=== PATIENT | female | born 1970 | race Caucasian/White ===

== ENCOUNTER 2017-10-05 09:35 | Emergency (ER) | payer MEDICAID ==
[2017-10-05 10:32] VITALS: BP 122/85; PULSE 76; RESP 18; TEMP 97.7; O2SAT 94
--- NOTE | 2017-10-05 10:56 | EDPHY ---
H & P Stated Complaint: 6 months bilat hand pain Time Seen by Provider: 10/05/17 09:51 HPI/ROS: CHIEF COMPLAINT: Bilateral hand pain HISTORY OF PRESENT ILLNESS: The patient presents to the ED with complaints of bilateral hand pain. The patient's symptoms have been present for the past several months. The patient saw her primary care provider who recommended the patient follow up with a hand surgeon. The patient has been using Aleve without improvement of her symptoms. The patient denies significant weakness. She has no complaints of neck pain. She denies fever. The patient denies any history of fall or trauma. The patient does have a history of a cholecystectomy. She has a history of hyperlipidemia. REVIEW OF SYSTEMS: A comprehensive 10 point review of systems is otherwise negative aside from elements mentioned in the history of present illness. Source: Patient Exam Limitations: No limitations - Personal History LMP (Females 10-55): Irregular Current Tetanus/Diphtheria Vaccine: Yes - Medical/Surgical History Hx Asthma: No Hx Chronic Respiratory Disease: No Hx Diabetes: No Hx Cardiac Disease: No Hx Renal Disease: No Hx Cirrhosis: No Hx Alcoholism: No Hx HIV/AIDS: No Hx Splenectomy or Spleen Trauma: No Other PMH: choly - Social History Smoking Status: Current every day smoker - Physical Exam Exam: General Appearance: Alert, no distress Eyes: Pupils equal and round no pallor or injection ENT, Mouth: Mucous membranes moist Respiratory: There are no retractions, lungs are clear to auscultation Cardiovascular: Regular rate and rhythm Gastrointestinal: Abdomen is soft and nontender, no masses, bowel sounds normal Neurological: Patient reports decreased sensation to light touch throughout the 2nd through 5th fingers. Patient is noted to have 5/5 strength throughout. Bilateral lower extremity strength noted, no clonus, normal reflexes bilateral upper extremities. Skin: Warm and dry, no rashes Musculoskeletal: Neck is supple nontender Extremities: symmetrical, full range of motion Constitutional: Initial Vital Signs Temperature (C) 36.7 C 10/05/17 09:39 Heart Rate 98 10/05/17 09:39 Respiratory Rate 16 10/05/17 09:39 Blood Pressure 132/93 H 10/05/17 09:39 O2 Sat (%) 96 10/05/17 09:39 O2 Delivery Mode Room Air Allergies/Adverse Reactions: codeine Allergy (Verified 10/05/17 09:38) Home Medications: Medication Instructions Recorded AMITRIPTYLINE HCL 10/05/17 VENLAFAXINE HCL 10/05/17 hydrOXYzine HCL 10/05/17 predniSONE [prednisone 20mg (RX)] 3 tab PO DAILY #15 tab 10/05/17 Medical Decision Making ED Course/Re-evaluation: The patient presents to the ED with bilateral hand pain for the past 6 months. There is not a classic distribution of a ulnar or median nerve pathology. Patient has brisk pulses. There is no evidence of circulatory compromise. The patient has no significant weakness on exam. The patient will be started on steroids to see if that improves her symptoms. I have referred her to our on- call hand surgeon for further evaluation of her symptoms. Departure - Departure Disposition: Home, Routine, Self-Care Clinical Impression: Bilateral hand pain Condition: Good Instructions: Arthralgia (ED) Additional Instructions: 1. Take steroids as directed for next 5 days. 2. Please follow up with the hand specialist you have been referred to for further evaluation. 3. Return to the ED for any weakness, worsening symptoms, fever or other concerns. Referrals: Willy Leonardo MD [Medical Doctor] - As per Instructions
== END 2017-10-05 10:31 | disposition home or self-care (01) ==
DX: M79.642 Pain in left hand (principal); M79.641 Pain in right hand; F17.200 Nicotine dependence, unspecified, uncomplicated

== ENCOUNTER 2017-11-28 16:18 | Emergency (ER) | payer MEDICAID ==
--- NOTE | 2017-11-28 17:05 | EDPHY ---
H & P Stated Complaint: r hand and wrist pain/seen in nov for same/can't find hand dr that takes me - Personal History LMP (Females 10-55): Over 28 Days Ago Current Tetanus/Diphtheria Vaccine: Yes - Medical/Surgical History Hx Asthma: No Hx Chronic Respiratory Disease: No Hx Diabetes: No Hx Cardiac Disease: No Hx Renal Disease: No Hx Cirrhosis: No Hx Alcoholism: No Hx HIV/AIDS: No Hx Splenectomy or Spleen Trauma: No Other PMH: Cholecystectomy - Social History Smoking Status: Current every day smoker HPI/ROS: Chief complaint: Bilateral wrist pain History of present illness: This is a 46-year-old female who presents to the emergency department for bilateral wrist pain. Patient reports she has been suffering from symptoms for the better part of this last year. Symptoms are at the point where it makes it difficult to perform activities of daily living. She has been seen by her primary care doctor as well as this emergency room. She has been referred to hand surgery. However she cannot follow-up with hand surgery as she has not found one that takes Medicaid. She has been treating with [id number] Aleve as well as using wrist splints at night. The symptoms have progressed. She denies associated signs or symptoms including no history of trauma, no fevers, no abnormal coolness the fingers, no paresthesias. Review of systems: A 10 point review of systems was obtained and other than described above was negative (Nomna Babcock) - Physical Exam Exam: General Appearance: Alert, nontoxic. Eyes: Pupils equal and round no injection. Respiratory: Chest is non tender, lungs are clear to auscultation. Cardiac: regular rate and rhythm Gastrointestinal: Abdomen is soft and non tender, no masses, bowel sounds normal. Musculoskeletal: Spine is nontender to palpation along its entire length. Patient has good range of motion and strength in the upper extremities bilaterally. The he is moving the wrist other digits well bilaterally. I am able to reproduce discomfort by having her forcefully extend or flex her wrists. Skin: No rashes or lesions. (Noman Babcock) Constitutional: Initial Vital Signs Temperature (C) 36.3 C 11/28/17 16:23 Heart Rate 80 11/28/17 16:23 Respiratory Rate 16 11/28/17 16:23 Blood Pressure 134/81 H 11/28/17 16:23 O2 Sat (%) 95 11/28/17 16:23 O2 Delivery Mode Room Air Allergies/Adverse Reactions: codeine Allergy (Verified 10/05/17 09:38) Home Medications: Medication Instructions Recorded VENLAFAXINE HCL 10/05/17 Naproxen Sodium 550 mg PO BID #20 tablet 11/28/17 SIMVASTATIN 11/28/17 Medical Decision Making - Diagnostics Imaging: I viewed and interpreted images myself - Diagnostics Imaging Results: Imaging Impressions Wrist X-Ray 11/28/17 17:00 Impression: No visible etiology for the patient's pain. Wrist X-Ray 11/28/17 17:00 Impression: No visible etiology for the patient's pain. ED Course/Re-evaluation: Patient seen under the supervision of my secondary supervising physician Dr. Rambo Lopez. Patient presents to the emergency department for chronic wrist pain. The hands are neurovascularly intact. She has good musculoskeletal control of them. X-rays are negative. Her primary concern is she has been unable to find a hand doctor that takes Medicaid. Case management has been involved. She is discharged home with a referral to a hand surgeon. Home care is discussed. Return precautions are given. Patient voiced understanding and agreement with plan. (Noman Babcock) Differential Diagnosis: Included but not limited to arthritis, carpal tunnel syndrome, contusion, sprain or strain, fracture (Noman Babcock) Other Provider: PHYSICIAN DOCUMENTATION: The patient was evaluated and managed by the Physician Log Loader. My co- signature indicates that I have reviewed this chart and I agree with the findings and plan of care as documented. I am the secondary supervising physician. (Sriram Lopez) Departure - Departure Disposition: Home, Routine, Self-Care Clinical Impression: Wrist pain, chronic Qualifiers: Laterality: unspecified laterality Qualified Code(s): M25.539 - Pain in unspecified wrist Condition: Good Instructions: Arthralgia (ED) Additional Instructions: You have a referral to Dr. Stephanie Ruiz (Hand specialist). Please call the office in the morning to schedule an appointment: Please take any ER records and/or instructions with you to your appointment Referrals: Farzaneh Packer MD [Primary Care Provider] - As per Instructions Stephanie Ruiz MD [Medical Doctor] - As per Instructions Prescriptions: Naproxen Sodium 550 mg PO BID #20 tablet
--- NOTE | 2017-11-28 17:32 | ASMTCMCOM ---
CM Note CM Note Notes: Referral made to Dr. Stephanie Ruiz per Dr. Lopez. ER report faxed to DR. Crockett' office along with patient demographic information. Hand X-rays pending at this time and I have explained that in my fax. Patient instructed to call Dr. Ruiz's office in AM to schedule appointment. Details added to patient discharge instructions Date Signed: 11/28/2017 05:31 PM Electronically Signed By:Zoe Herrmann RN
[2017-11-28 18:21] VITALS: BP 125/74; PULSE 74; RESP 18; TEMP 98.6; O2SAT 93
== END 2017-11-28 18:41 | disposition home or self-care (01) ==
DX: M25.531 Pain in right wrist (principal); M25.532 Pain in left wrist; G89.29 Other chronic pain; F17.200 Nicotine dependence, unspecified, uncomplicated

== ENCOUNTER 2017-12-11 22:35 | Emergency (ER) | payer MEDICAID ==
[2017-12-11 22:40] VITALS: TEMP 97.5
[2017-12-12] MEDS ORDERED: KETOROLAC 30 MG/1 ML SDV IM ONE (00:21)
[2017-12-12] MEDS ORDERED: LIDOCAINE 5% 1 EA PATCH TD ONE (00:24)
--- NOTE | 2017-12-12 00:29 | EDPHY ---
H & P Stated Complaint: right fank pain, cough Time Seen by Provider: 12/12/17 00:13 HPI/ROS: HPI The patient presents with right-sided flank pain which has been present for 3 days. A few weeks ago she had a similar pain, however improved on its own. The pain is sharp, constant, does not radiate, is worse when she is lying flat. She has tried heating pads and NSAIDs without any improvement in her symptoms. She denies any dysuria or hematuria. She has not had a rash. She denies any fever. She does not have any numbness or tingling of her legs. She denies any leg weakness. She denies any incontinence. She is also complaining of a dry cough which has been present for the last several weeks ever since she stop smoking.. REVIEW OF SYSTEMS Constitutional: No fever, no chills. Eyes: No discharge. ENT: No sore throat. Cardiovascular: No chest pain, no palpitations. Respiratory: No cough, no shortness of breath. Gastrointestinal: No abdominal pain, no vomiting. Genitourinary: No hematuria. Musculoskeletal: See HPI Skin: No rashes. Neurological: No headache. PMHx: History of carpal tunnel Soc Hx: Recently quit smoking PHYSICAL General Appearance: Alert, no distress Eyes: Pupils equal and round no pallor or injection ENT, Mouth: Mucous membranes moist Respiratory: There are no retractions, lungs are clear to auscultation Cardiovascular: Regular rate and rhythm Gastrointestinal: Abdomen is soft and non-tender, no masses, bowel sounds normal Back: There is right-sided paraspinal tenderness along the lumbar spine with no midline tenderness, there is mild right-sided CVAT Neurological: A&O, moves all extremities Skin: Warm and dry, no rashes Musculoskeletal: Neck is supple non tender Extremities: symmetrical, full range of motion Psychiatric: Patient is oriented X 3, there is no agitation Source: Patient Exam Limitations: No limitations - Personal History LMP (Females 10-55): Post Menopausal - Medical/Surgical History Hx Asthma: No Hx Chronic Respiratory Disease: No Hx Diabetes: No Hx Cardiac Disease: No Hx Renal Disease: No Hx Cirrhosis: No Hx Alcoholism: No Hx HIV/AIDS: No Hx Splenectomy or Spleen Trauma: No Other PMH: Cholecystectomy, depression, hyperlipidemia - Social History Smoking Status: Former smoker Constitutional: Initial Vital Signs Temperature (C) 36.4 C 12/11/17 22:38 Heart Rate 94 12/11/17 22:38 Respiratory Rate 20 12/11/17 22:38 Blood Pressure 141/87 H 12/11/17 22:38 O2 Sat (%) 96 12/11/17 22:38 O2 Delivery Mode Room Air Allergies/Adverse Reactions: codeine Allergy (Verified 12/11/17 22:37) Home Medications: Medication Instructions Recorded VENLAFAXINE HCL 10/05/17 Naproxen Sodium 550 mg PO BID #20 tablet 11/28/17 SIMVASTATIN 11/28/17 Medical Decision Making - Diagnostics Imaging Results: Chest x-ray two view shows no cardiomegaly, no infiltrate, no effusion, interpreted by me, radiology interpretation is pending. Differential Diagnosis: 46-year-old female presents with right-sided flank pain for the last 3 days with no associated features. Differential diagnosis includes musculoskeletal pain, nephrolithiasis, ureterolithiasis. In the emergency department, chest x-ray was performed and was normal showing no pneumonia. UA was also normal making pyelonephritis or ureterolithiasis unlikely. I feel the patient is likely suffering from muscular pain. I have discussed this with her. She received Toradol and lidocaine patch with improvement in her symptoms. I have explained that she should take ibuprofen and Tylenol around the clock until she is feeling better. She can follow up with her primary care doctor if she is still having pain in 1-2 weeks. - Data Points Laboratory Results: 12/12/17 00:00 Urine Color PALE YELLOW Urine Appearance CLEAR Urine pH 6.0 (5.0-7.5) Ur Specific [place] 1.003 (1.002-1.030) Urine Protein NEGATIVE (NEGATIVE) Urine Ketones NEGATIVE (NEGATIVE) Urine Blood NEGATIVE (NEGATIVE) Urine Nitrate NEGATIVE (NEGATIVE) Urine Bilirubin NEGATIVE (NEGATIVE) Urine Urobilinogen NEGATIVE EU EU (0.2-1.0) Ur Leukocyte Esterase NEGATIVE (NEGATIVE) Urine Glucose NEGATIVE (NEGATIVE) Medications Given: Discontinued Medications Ketorolac Tromethamine (Toradol) 30 mg IM EDNOW ONE Stop: 12/12/17 00:22 Last Admin: 12/12/17 00:30 Dose: 30 mg Lidocaine (Lidoderm 5%) 1 ea TD DAILY ORNEY Stop: 06/10/18 08:59 Last Admin: 12/12/17 00:31 Dose: 1 ea Departure - Departure Disposition: Home, Routine, Self-Care Clinical Impression: Lower back pain Qualifiers: Chronicity: acute Back pain laterality: right Sciatica presence: without sciatica Qualified Code(s): M54.5 - Low back pain Condition: Good Instructions: Low Back Strain (ED), Lower Back Exercises (ED) Additional Instructions: You should take ibuprofen 400 mg and acetaminophen 650 mg every 6 hr as needed for pain. Please follow-up with your primary care doctor in 1-2 weeks unless your better. Referrals: Farzaneh Packer MD [Primary Care Provider] - As per Instructions
[2017-12-12 01:42] VITALS: BP 97/67; PULSE 69; RESP 16; O2SAT 97
[2017-12-12] MEDS ORDERED: LIDOCAINE 5% 1 EA PATCH TD SCH (09:00)
[2017-12-12] MEDS ORDERED: PATCH REMOVAL 1 EA PATCH TD SCH (21:00)
== END 2017-12-12 01:58 | disposition home or self-care (01) ==
DX: M54.5 Low back pain (principal); Z90.49 Acquired absence of other specified parts of digestive tract; Z87.891 Personal history of nicotine dependence
CPT/HCPCS: J1885

== ENCOUNTER → 2017-12-17 | Outpatient (CLI) | payer MEDICAID | LOC: FIMAGING 09:53 | PROVIDERS: ATTEND Family Medicine | DX: M54.9 Dorsalgia, unspecified (principal); M62.838 Other muscle spasm; R10.9 Unspecified abdominal pain ==

== ENCOUNTER 2018-01-06 10:50 | Emergency (ER) | payer MEDICAID ==
--- NOTE | 2018-01-06 11:00 | CPEKG ---
Heart Rate: 57 RR Interval: 1053 P-R Interval: 176 QRSD Interval: 94 QT Interval: 420 QTC Interval: 409 P [place]: 49 QRS [place]: 23 T Wave [place]: 23 EKG Severity - NORMAL ECG - EKG Impression: SINUS RHYTHM Electronically Signed By: Dimple Rodriguez 06-Jan-2018 17:19:44
--- NOTE | 2018-01-06 11:09 | EDPHY ---
General - History Smoking Status: Former smoker Time Seen by Provider: 01/06/18 11:01 Narrative: CHIEF COMPLAINT: Chest pain HISTORY OF PRESENT ILLNESS: Patient arrives by EMS with complaints of left-sided chest pain. The chest pain started this morning 8:39 a.m.. This is an acute on chronic pain that she has been experiencing for the past year. It is described as a sharp, constant pain. It does wax and wane but never goes away. It radiates to the left shoulder and arm with some tingling of the arm. No neck pain. No headache. She was reportedly diaphoretic with some lightheadedness and dizziness. It is currently 10/10 pain. No worse with exertion or going down the stairs in her apartment. No trauma or injury. No history of PE or other venous thrombolic event. She recently quit smoking 1 month ago and has no previous diagnosis for this. Stress test in 2011. No other associated complaints or modifying factors. REVIEW OF SYSTEMS: Ten systems reviewed and are negative unless otherwise noted in the HPI PCP: Dr. Packer SPECIALISTS: None PAST MEDICAL HISTORY: Carpal tunnel syndrome, fibromyalgia, hypertension PAST SURGICAL HISTORY: Cholecystectomy SOCIAL HISTORY: Quit smoking 1 month ago with 1 inav-toe-hme smoking. No drug or alcohol use. Does not work FAMILY HISTORY: Noncontributory EXAMINATION General Appearance: Alert, no distress, tearful but consolable Head: normocephalic, atraumatic Eyes: Pupils equal and round, no conjunctival pallor or injection ENT, Mouth: Mucous membranes moist Neck: Normal inspection, supple, non-tender Respiratory: Lungs are clear to auscultation. No wheezing rhonchi or crackles Cardiovascular: Regular rate and rhythm. No murmur. Painful palpation to the left anterior chest. Gastrointestinal: Abdomen is soft and nontender Back: non-tender, no bony abnormalities Neurological: A&O, nonfocal, normal gait Skin: Warm and dry, no rash. No petechiae or purpura Extremities: Nontender, no pedal edema Psychiatric: Mood and affect normal DIFFERENTIAL DIAGNOSES: Including but not limited to ACS, PE, pneumonia, pleurisy, pericarditis, musculoskeletal pain MDM: 11:10 a.m. Left-sided chest pain that is mostly reproducible with palpation. There is some radicular-type pain. This is nonexertional. Vital signs are within normal limits. Low clinical suspicion for ACS or PE, but I have discussed with Dr. Rodriguez and we have ordered a D-dimer. Her cardiac labs are already pending. Chest x-ray ordered. No acute distress. 11:45 a.m. Laboratory studies are unremarkable. This includes a negative troponin. Negative HCG. No leukocytosis. D-dimer is pending. I have ordered Toradol for pain 12:20 p.m. D-dimer is negative. I have re-evaluated the patient and her pain has not improved with the IV Toradol. I have ordered 2 Percocet 5 mg pills. I discussed with Dr. Rodriguez. 1:30 p.m. Patient re-evaluated. I do feel that there is possibility of anxiety component to this. This has been addressed with the RN as well. Patient will be evaluated by Dr. Rodriguez as well. 2:30 p.m. Patient evaluated by Dr. Rodriguez. Repeat troponin is pending. 3:10 p.m. The 2nd troponin, drawn at 3:00 a.m. From time arrival, is also negative. I have re-evaluated the patient. Her pain is improving. She has minimal complaints of pain at this time. This is a reproducible pain. I do not feel this is cardiac in etiology. We had a very lengthy discussion regarding her underlying pain, chronic pain, anxiety component. I recommend that she follow up with primary care physician to discuss psychiatric referral for the possibility of resuming her Xanax. We discussed [id number] anti- inflammatories. At this time she is stable for discharge home. [place] HEART score: 2 (age and 1 risk factor) SUPERVISION: Patient was independently examined, but I discussed the case with my secondary supervising physician Dr. Rodriguez ([facility]) I evaluated and participated in the management of the patient. I also evaluated the patient independently. My co-signature indicates that I have reviewed this chart and I agree with the findings and plan of care as documented. My personal H&P findings include: This is a 47-year-old female who tells me she has had left-sided chest pain for 5 years. She describes pain radiating from the left para sternal region to her left shoulder. She tells me that she has been previously diagnosed as having possible fibromyalgia. Today she presents emergency department reporting that for the last 4 hr she has had left- sided chest pain radiating into her left shoulder and then onto her arm. Pain is described as sharp. It is worse with deep inspiration. Patient has no cardiac risk factors that we can identify other than former smoker. She is slightly overweight. No history of diabetes or hypertension. No history of hypercholesterolemia. Patient is adopted and does not know her family history. Patient's lungs are clear auscultation. Heart is regular rate and rhythm. EKG has no ischemic changes. Initial troponin is negative. Patient's heart score is 2. Patient is agreeable to have a 2nd troponin ordered 3 hr following the 1st. This was also negative. Patient will be discharged to follow up at [facility]. (Dimple Rodriguez) - Diagnostics Imaging Results: Imaging Impressions Chest X-Ray 01/06/18 11:21 Impression: Normal chest. - Objective Vital Signs: Initial Vital Signs Temperature (C) 36.3 C 01/06/18 10:56 Heart Rate 65 01/06/18 10:56 Respiratory Rate 16 01/06/18 10:56 Blood Pressure 155/83 H 01/06/18 10:56 O2 Sat (%) 99 01/06/18 10:56 O2 Delivery Mode Room Air Allergies/Adverse Reactions: codeine Allergy (Verified 12/11/17 22:37) Home Medications: Medication Instructions Recorded VENLAFAXINE HCL 10/05/17 SIMVASTATIN 11/28/17 traZODone 01/06/18 Laboratory Results: Laboratory Results 01/06/18 11:01 01/06/18 11:01 01/06/18 01/06/18 01/06/18 14:05 11:01 11:01 WBC RBC Hgb Hct MCV MCH MCHC RDW Plt Count MPV Neut % (Auto) Lymph % (Auto) [place] % (Auto) Eos % (Auto) Baso % (Auto) Nucleat RBC Rel Count Absolute Neuts (auto) Absolute Lymphs (auto) Absolute Monos (auto) Absolute Eos (auto) Absolute Basos (auto) Absolute Nucleated RBC Immature Gran % Immature Gran # PT INR APTT D-Dimer Sodium 141 mEq/L mEq/L (135-145) Potassium 4.4 mEq/L mEq/L (3.5-5.2) Chloride 101 mEq/L mEq/L (97-110) Carbon Dioxide 26 mEq/l mEq/l (22-31) Anion Gap 14 mEq/L mEq/L (8-16) BUN 12 mg/dL mg/dL (7-23) Creatinine 0.8 mg/dL mg/dL (0.6-1.0) Estimated GFR > 60 Glucose 117 mg/dL H mg/dL (70-100) Calcium 9.5 mg/dL mg/dL (8.5-10.4) Troponin I < 0.012 ng/mL ng/mL < 0.012 ng/mL ng/mL (0.000-0.034) (0.000-0.034) NT-Pro-B Natriuret Pep 106 pg/mL pg/mL (0-125) Lipase 60 IU/L IU/L (23-300) Beta HCG, Qual NEGATIVE 01/06/18 01/06/18 11:01 11:01 WBC 9.25 10^3/uL 10^3/uL (3.80-9.50) RBC 5.16 10^6/uL 10^6/uL (4.18-5.33) Hgb 14.2 g/dL g/dL (12.6-16.3) Hct 44.4 % % (38.0-47.0) MCV 86.0 fL fL (81.5-99.8) MCH 27.5 pg L pg (27.9-34.1) MCHC 32.0 g/dL L g/dL (32.4-36.7) RDW 15.9 % H % (11.5-15.2) Plt Count 265 10^3/uL 10^3/uL (150-400) MPV 8.3 fL L fL (8.7-11.7) Neut % (Auto) 68.1 % % (39.3-74.2) Lymph % (Auto) 24.0 % % (15.0-45.0) [place] % (Auto) 5.9 % % (4.5-13.0) Eos % (Auto) 1.3 % % (0.6-7.6) Baso % (Auto) 0.3 % % (0.3-1.7) Nucleat RBC Rel Count 0.0 % % (0.0-0.2) Absolute Neuts (auto) 6.29 10^3/uL 10^3/uL (1.70-6.50) Absolute Lymphs (auto) 2.22 10^3/uL 10^3/uL (1.00-3.00) Absolute Monos (auto) 0.55 10^3/uL 10^3/uL (0.30-0.80) Absolute Eos (auto) 0.12 10^3/uL 10^3/uL (0.03-0.40) Absolute Basos (auto) 0.03 10^3/uL 10^3/uL (0.02-0.10) Absolute Nucleated RBC 0.00 10^3/uL 10^3/uL (0-0.01) Immature Gran % 0.4 % % (0.0-1.1) Immature Gran # 0.04 10^3/uL 10^3/uL (0.00-0.10) PT 12.9 SEC SEC (12.0-15.0) INR 0.95 (0.83-1.16) APTT 29.1 SEC SEC (23.0-38.0) D-Dimer 0.30 ug/mLFEU ug/mLFEU (0.00-0.50) Sodium Potassium Chloride Carbon Dioxide Anion Gap BUN Creatinine Estimated GFR Glucose Calcium Troponin I NT-Pro-B Natriuret Pep Lipase Beta HCG, Qual Medications Given: Discontinued Medications Acetaminophen (Tylenol) 1,000 mg PO EDNOW ONE Stop: 01/06/18 14:20 Last Admin: 01/06/18 14:56 Dose: Not Given Ketorolac Tromethamine (Toradol) 30 mg IVP EDNOW ONE Stop: 01/06/18 11:56 Last Admin: 01/06/18 12:02 Dose: 30 mg Miscellaneous Medication (Icy Hot Lidocaine/Menthol 4%/1% Patch) 1 patch TD EDNOW ONE Stop: 01/06/18 14:20 Last Admin: 01/06/18 14:56 Dose: Not Given Oxycodone/Acetaminophen (Percocet 5/325) 2 tab PO EDNOW ONE Stop: 01/06/18 12:27 Last Admin: 01/06/18 12:48 Dose: 2 tab Departure - Departure Disposition: Home, Routine, Self-Care Clinical Impression: Chest wall pain Condition: Good Instructions: Chest Pain (ED), Anxiety (ED), Chest Wall Pain (ED), Anxiolysis in Adults (ED) Additional Instructions: 1. Recommend [id number] anti-inflammatories as discussed as needed 2. Follow up with primary care physician for further care and workup 3. ED precautions as discussed Referrals: Farzaneh Packer MD [Primary Care Provider] - As per Instructions
[2018-01-06 11:13] LABS: PLATELET COUNT 265 10^3/uL (150-400)
[2018-01-06 11:25] LABS: INR 0.95 (0.83-1.16); PROTIME(PATIENT) 12.9 SEC (12.0-15.0)
[2018-01-06] MEDS ORDERED: KETOROLAC 30 MG/1 ML SDV IVP ONE (11:55)
[2018-01-06 12:14] VITALS: RESP 18
[2018-01-06] MEDS ORDERED: OXYCODONE/APAP 5/325 TAB PO ONE (12:26)
[2018-01-06] MEDS ORDERED: LIDOCAINE 4%/MENTHOL 1% PATCH TD ONE (14:19)
[2018-01-06] MEDS ORDERED: ACETAMINOPHEN 500 MG TAB PO ONE (14:19)
[2018-01-06 15:24] VITALS: BP 125/87; PULSE 69; TEMP 98.6; O2SAT 96
== END 2018-01-06 15:23 | disposition home or self-care (01) ==
LOC: EDUNIT#
DX: R07.89 Other chest pain (principal); I10 Essential (primary) hypertension; Z87.891 Personal history of nicotine dependence
CPT/HCPCS: 96374; J1885

== ENCOUNTER 2018-01-25 16:42 | Emergency (ER) | payer MEDICAID | END 2018-01-25 17:11 | disposition left against medical advice (07) | DX: Z53.21 Procedure and treatment not carried out due to patient leaving prior to being seen by health care provider (principal) ==

== ENCOUNTER 2018-01-25 20:58 | Emergency (ER) | payer MEDICAID ==
[2018-01-25] MEDS ORDERED: ONDANSETRON 4 MG/2 ML VIAL IVP ONE (21:25)
[2018-01-25] MEDS ORDERED: KETOROLAC 30 MG/1 ML SDV IVP ONE (21:25)
[2018-01-25 21:27] VITALS: BP 162/93; PULSE 64; RESP 16; TEMP 98.4; O2SAT 93
--- NOTE | 2018-01-25 21:28 | EDPHY ---
H & P Time Seen by Provider: 01/25/18 21:20 HPI/ROS: CHIEF COMPLAINT: Runny nose, body aches, nausea HISTORY OF PRESENT ILLNESS: The patient is a 47-year-old female who complains of runny nose, sore throat, nausea, body aches and chills for the last 6 days. She has also had headaches. No neck pain or stiffness. No altered mental status. No vomiting. She thinks that she has the flu. She has had several sick contacts. REVIEW OF SYSTEMS: Constitutional: See HPI EENTM: See HPI Respiratory: See HPI no cough or shortness of breath. Cardiac: denies: chest pain, irregular heart rate, lightheadedness, palpitations Gastrointestinal/Abdominal: denies: abdominal pain, diarrhea, nausea, vomiting, blood streaked stools Genitourinary: denies: dysuria, frequency, hematuria, pain Musculoskeletal: denies: joint pain, muscle pain Skin: denies: lesions, rash, jaundice, bruising Neurological: denies: headache, numbness, paresthesia, tingling, dizziness, weakness Hematologic/Lymphatic: denies: blood clots, easy bleeding, easy bruising Immunologic/allergic: denies: HIV/AIDS, transplant EXAM: GENERAL: well-nourished and in no acute distress. HEAD: Atraumatic, normocephalic. EYES: Pupils equal round and reactive to light, extraocular movements intact, sclera anicteric, conjunctiva are normal. ENT: TMs normal, nares patent, oropharynx clear without exudates. Moist mucous membranes. NECK: Normal range of motion, supple without lymphadenopathy or JVD. LUNGS: Breath sounds clear to auscultation bilaterally and equal. No wheezes rales or rhonchi. HEART: Regular rate and rhythm without murmurs, rubs or gallops. ABDOMEN: Soft, nontender, normoactive bowel sounds. No guarding, no rebound. No masses appreciated. BACK: No CVA tenderness, no spinal tenderness, step-offs or deformities EXTREMITIES: Normal range of motion, no pitting or edema. No clubbing or cyanosis. NEUROLOGICAL: Cranial nerves II through XII grossly intact. Normal speech, normal gait. 5/5 strength, normal movement in all extremities, normal sensation PSYCH: Normal mood, normal affect. SKIN: Warm, dry, normal turgor, no visible rashes or lesions. Source: Patient, EMS Exam Limitations: No limitations - Medical/Surgical History Hx Asthma: No Hx Chronic Respiratory Disease: No Hx Diabetes: No Hx Cardiac Disease: No Hx Renal Disease: No Hx Cirrhosis: No Hx Alcoholism: No Hx HIV/AIDS: No Hx Splenectomy or Spleen Trauma: No Other PMH: Cholecystectomy, social anxiety disorder, hyperlipidemia. fibromyalgia, stomach problems - Family History Significant Family History: No pertinent family hx - Social History Smoking Status: Former smoker Alcohol Use: Sober Drug Use: None Constitutional: Initial Vital Signs Temperature (C) 36.9 C 01/25/18 21:19 Heart Rate 64 01/25/18 21: Respiratory Rate 16 01/25/18 21: Blood Pressure 162/93 H 01/25/18 21: O2 Sat (%) 93 01/25/18 21: O2 Delivery Mode Room Air Allergies/Adverse Reactions: codeine Allergy (Verified 12/11/17 22:37) Home Medications: Medication Instructions Recorded VENLAFAXINE HCL 10/05/17 SIMVASTATIN 11/28/17 traZODone 01/06/18 Ondansetron Odt [Zofran Odt 4 mg 4 mg PO Q4 PRN #10 tab 01/25/18 (RX)] Medical Decision Making ED Course/Re-evaluation: Patient is well appearing. She is afebrile here. I suspect that she does have the flu or other viral type infection. I encouraged hydration. She is asking for nausea medication. We will give her Zofran. I also encouraged anti- inflammatories for her body aches. She does not have any meningismus. I do not suspect sepsis. We discussed indications for returning. I encouraged hydration and rest. It is too late for Tamiflu. Differential Diagnosis: Partial list of the Differential diagnosis considered include but were not limited to; viral syndrome, influenza, and although unlikely based on the history and physical exam, I also considered meningitis, sepsis, endocarditis, pneumonia. I discussed these differential diagnoses and the plan with the patient as well as the usual and expected course. The patient understands that the diagnosis is provisional and that in medicine we are not always correct and that further workup is often warranted. Usual and customary warnings were given. All of the patient's questions were answered. The patient was instructed to return to the emergency department should the symptoms at all worsen or return, otherwise to followup with the physician as we discussed. - Data Points Medications Given: Discontinued Medications Ketorolac Tromethamine (Toradol) 15 mg IVP EDNOW ONE Stop: 01/25/18 21:26 Last Admin: 01/25/18 21:36 Dose: 15 mg Ondansetron HCl (Zofran) 4 mg IVP EDNOW ONE Stop: 01/25/18 21:26 Last Admin: 01/25/18 21:36 Dose: 4 mg Departure - Departure Disposition: Home, Routine, Self-Care Clinical Impression: Influenza Condition: Good Instructions: Influenza (ED) Referrals: Patient,NotPresent [Unknown] - As per Instructions [facility],. [Clinic] - As per Instructions Prescriptions: Ondansetron Odt [Zofran Odt 4 mg (RX)] 4 mg PO Q4 PRN #10 tab PRN Reason: Nausea & Vomiting
== END 2018-01-25 21:42 | disposition home or self-care (01) ==
LOC: EDUNIT#
DX: J11.1 Influenza due to unidentified influenza virus with other respiratory manifestations (principal); Z87.891 Personal history of nicotine dependence
CPT/HCPCS: 96374; J1885; J2405

== ENCOUNTER 2018-01-28 18:08 | Emergency (ER) | payer MEDICAID ==
[2018-01-28] MEDS ORDERED: NS 1,000 ML IV ONE (18:35)
--- NOTE | 2018-01-28 18:35 | EDPHY ---
H & P Stated Complaint: heavy vaginal bleeding for 10 days Time Seen by Provider: 01/28/18 18:34 HPI/ROS: HPI: This is a 47-year-old female who presents with Chief Complaint: heavy vaginal bleeding for 10 days Location: Vaginal Quality: Bleeding Duration: Hand 11 days Signs and Symptoms: no fever, no nausea, no vomiting, no hematemesis, no blood in stool, no abdominal bloating, no diarrhea, no back pain, no urinary symptoms , no vaginal discharge, no indigestion, no chest pain, no shortness of breath Timing: Daily Severity: Moderate Context: Patient reports that she has had her menses for the last 10-11 days with changing tampons every 2-3 hours. She started to experience some dizziness today and called her PCP who advised her to go to the emergency room. She reports that her last period was approximately 1 year ago and lasted 7 days. 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 Patient denies any weight loss/fever/abdominal pain/urinary symptoms/chest pain. Modifying Factors: None Comment: ROS: see HPI Constitutional: No fever, no chills, no weight loss Eyes: No blurred vision Respiratory: No shortness of breath, no cough Cardiovascular: No chest pain, no palpitations Gastrointestinal: No nausea, no vomiting, no diarrhea, no hematemesis, no blood in stool Genitourinary: No dysuria, no blood in urine Extremities: No myalgias, no edema Neurologic: No weakness, no numbness Skin: No rashes, no petechiae Hematologic: No bruising, no bleeding MEDICAL/SURGICAL/SOCIAL HISTORY: Medical/surgical history: Cholecystectomy, social anxiety disorder, hyperlipidemia, fibromyalgia, stomach problems, Social history: . CONSTITUTIONAL: Obese extremely pleasant white female, awake and alert, no obvious distress HEENT: Atraumatic and normocephalic, PERRL, EOMI. Tympanic membranes clear. Oropharynx clear, no exudate and moist pink mucosa. Airway patent. No lymphadenopathy. No meningismus. Cardiovascular: Normal S1/S2, regular rate, regular rhythm, without murmur rub or gallop. PULMONARY/CHEST: Symmetrical and nontender. Clear to auscultation bilaterally. Good air movement. No accessory muscle usage. ABDOMEN: Soft, nondistended, nontender, no rebound, no guarding, no peritoneal signs, no masses or organomegaly. No CVAT. PELVIC: normal external genitalia, normal cervix, cervical os was closed, no cervical motion tenderness, no adnexal mass, no discharge, mild amount of bleeding. The exam was performed with a commercial door installer. EXTREMITIES: 2/2 pulses, strength 5/5, no deformities, no clubbing, no cyanosis or edema. NEUROLOGICAL: no focal neuro deficits. GCS 15. SKIN: Warm and dry, no erythema. no rash. Good capillary refill. Source: Patient Exam Limitations: No limitations - Personal History LMP (Females 10-55): Now Current Tetanus/Diphtheria Vaccine: Yes Current Tetanus Diphtheria and Acellular Pertussis (TDAP): Yes Tetanus Vaccine Date: < 10 years - Medical/Surgical History Hx Asthma: No Hx Chronic Respiratory Disease: No Hx Diabetes: No Hx Cardiac Disease: No Hx Renal Disease: No Hx Cirrhosis: No Hx Alcoholism: No Hx HIV/AIDS: No Hx Splenectomy or Spleen Trauma: No Other PMH: Cholecystectomy, social anxiety disorder, hyperlipidemia. fibromyalgia, stomach problems - Social History Smoking Status: Former smoker Constitutional: Initial Vital Signs Temperature (C) 36.8 C 01/28/18 18:11 Heart Rate 90 01/28/18 18:11 Respiratory Rate 30 H 01/28/18 18:11 Blood Pressure 164/89 H 01/28/18 18:11 O2 Sat (%) 96 01/28/18 18:11 O2 Delivery Mode Room Air Allergies/Adverse Reactions: codeine Allergy (Verified 01/28/18 18:11) Home Medications: Medication Instructions Recorded VENLAFAXINE HCL 10/05/17 SIMVASTATIN 11/28/17 traZODone 01/06/18 Ondansetron Odt [Zofran Odt 4 mg 4 mg PO Q4 PRN #10 tab 01/25/18 (RX)] Tranexamic Acid [Lysteda] 1,300 mg PO TID 5 Days tablet 01/28/18 Medical Decision Making - Diagnostics Imaging Results: Imaging Impressions Pelvic/Renal Ultrasound 01/28/18 18:35 Impression: 1. Sonographically unremarkable uterus. 2. Nonspecific 4 mm echogenic focus within the left ovary, too small to characterize. ED Course/Re-evaluation: Vital signs reviewed and stable upon arrival. Labs, pelvic ultrasound ordered Given 1 L normal saline 1910: Labs reviewed: H&H stable 1929: Notified by nursing that ultrasound complete. Patient now complaining of cramping status post transvaginal ultrasound. P.o. Flexeril and IV Toradol given. 1999: Ultrasound shows: sonographically unremarkable uterus. Nonspecific 4 mm echogenic focus within the left ovary, too small to characterize. Reassessed patient who reports that she feels considerably better. She understands the need to follow up with OBGYN and she is premenopausal. Given TXA 1300 mg and script for same This patient was seen under the supervision of my secondary supervising physician. I evaluated care for this patient independently. Discussed this patient with Dr. Osman who did not see the patient. Differential Diagnosis: Abdominal pain in a female including but not limited to ovarian cyst, pelvic inflammatory disease, ovarian torsion, urinary tract infection, and appendicitis. - Data Points Laboratory Results: Laboratory Results 01/28/18 18:51 01/28/18 18:51 01/28/18 01/28/18 01/28/18 18:51 18:51 18:51 WBC RBC Hgb Hct MCV MCH MCHC RDW Plt Count MPV Neut % (Auto) Lymph % (Auto) [place] % (Auto) Eos % (Auto) Baso % (Auto) Nucleat RBC Rel Count Absolute Neuts (auto) Absolute Lymphs (auto) Absolute Monos (auto) Absolute Eos (auto) Absolute Basos (auto) Absolute Nucleated RBC Immature Gran % Immature Gran # PT 13.6 SEC SEC (12.0-15.0) INR 1.02 (0.83-1.16) APTT 26.9 SEC SEC (23.0-38.0) Sodium 139 mEq/L mEq/L (135-145) Potassium 3.7 mEq/L mEq/L (3.5-5.2) Chloride 101 mEq/L mEq/L (97-110) Carbon Dioxide 26 mEq/l mEq/l (22-31) Anion Gap 12 mEq/L mEq/L (8-16) BUN 13 mg/dL mg/dL (7-23) Creatinine 0.8 mg/dL mg/dL (0.6-1.0) Estimated GFR > 60 Glucose 93 mg/dL mg/dL (70-100) Calcium 9.0 mg/dL mg/dL (8.5-10.4) Beta HCG, Qual NEGATIVE 01/28/18 18:51 WBC 10.71 10^3/uL H 10^3/uL (3.80-9.50) RBC 4.88 10^6/uL 10^6/uL (4.18-5.33) Hgb 13.5 g/dL g/dL (12.6-16.3) Hct 41.2 % % (38.0-47.0) MCV 84.4 fL fL (81.5-99.8) MCH 27.7 pg L pg (27.9-34.1) MCHC 32.8 g/dL g/dL (32.4-36.7) RDW 16.0 % H % (11.5-15.2) Plt Count 251 10^3/uL 10^3/uL (150-400) MPV 8.1 fL L fL (8.7-11.7) Neut % (Auto) 72.6 % % (39.3-74.2) Lymph % (Auto) 20.1 % % (15.0-45.0) [place] % (Auto) 5.6 % % (4.5-13.0) Eos % (Auto) 0.8 % % (0.6-7.6) Baso % (Auto) 0.4 % % (0.3-1.7) Nucleat RBC Rel Count 0.0 % % (0.0-0.2) Absolute Neuts (auto) 7.78 10^3/uL H 10^3/uL (1.70-6.50) Absolute Lymphs (auto) 2.15 10^3/uL 10^3/uL (1.00-3.00) Absolute Monos (auto) 0.60 10^3/uL 10^3/uL (0.30-0.80) Absolute Eos (auto) 0.09 10^3/uL 10^3/uL (0.03-0.40) Absolute Basos (auto) 0.04 10^3/uL 10^3/uL (0.02-0.10) Absolute Nucleated RBC 0.00 10^3/uL 10^3/uL (0-0.01) Immature Gran % 0.5 % % (0.0-1.1) Immature Gran # 0.05 10^3/uL 10^3/uL (0.00-0.10) PT INR APTT Sodium Potassium Chloride Carbon Dioxide Anion Gap BUN Creatinine Estimated GFR Glucose Calcium Beta HCG, Qual Medications Given: Discontinued Medications Cyclobenzaprine HCl (Flexeril) 10 mg PO EDNOW ONE Stop: 01/28/18 19:34 Last Admin: 01/28/18 19:36 Dose: 10 mg Sodium Chloride (Ns) 1,000 mls @ 0 mls/hr IV ONCE ONE; Wide Open PRN Reason: Protocol Stop: 01/28/18 18:36 Last Admin: 01/28/18 18:51 Dose: 1,000 mls Ketorolac Tromethamine (Toradol) 30 mg IVP EDNOW ONE Stop: 01/28/18 19:34 Last Admin: 01/28/18 19:36 Dose: 30 mg Departure - Departure Disposition: Home, Routine, Self-Care Clinical Impression: Heavy menstrual bleeding Qualifiers: Menorrahagia type: premenopausal Qualified Code(s): N92.4 - Excessive bleeding in the premenopausal period Condition: Good Instructions: Menorrhagia (ED), Tranexamic acid (By mouth) Additional Instructions: Return to the ER immediately if you experience new, continued or worsening abdominal pain, fevers/chills, inability to tolerate oral intake, new pain, or any other symptoms that concern you. Referrals: Farzaneh Packer MD [Primary Care Provider] - As per Instructions Angi Fowler DO [Doctor of Osteopathy] - As per Instructions Prescriptions: Tranexamic Acid [Lysteda] 1,300 mg PO TID 5 Days tablet
[2018-01-28 19:00] LABS: PLATELET COUNT 251 10^3/uL (150-400)
[2018-01-28 19:11] LABS: INR 1.02 (0.83-1.16); PROTIME(PATIENT) 13.6 SEC (12.0-15.0)
[2018-01-28] MEDS ORDERED: CYCLOBENZAPRINE 10 MG TAB PO ONE (19:33)
[2018-01-28] MEDS ORDERED: KETOROLAC 30 MG/1 ML SDV IVP ONE (19:33)
[2018-01-28] MEDS ORDERED: TRANEXAMIC ACID 650 MG TAB PO ONE (20:13)
[2018-01-28 20:32] VITALS: BP 141/74; PULSE 65; RESP 18; TEMP 97.5; O2SAT 94
== END 2018-01-28 20:47 | disposition home or self-care (01) ==
DX: N92.4 Excessive bleeding in the premenopausal period (principal); E86.9 Volume depletion, unspecified; Z87.891 Personal history of nicotine dependence
CPT/HCPCS: 96374; J1885